=== PATIENT | female | born 1945 | race Caucasian/White ===

== ENCOUNTER 2018-03-29 06:57 | Day surgery (SDC) | payer MEDICARE ==
[~2018-03-29] VITALS: Ht 162.6 cm; Wt 63.0 kg
[2018-03-29] MEDS ORDERED: LACTATED RINGERS 1,000 ML IV SCH (07:29)
[2018-03-29 07:31] VITALS: BP 177/112
[2018-03-29] MEDS ORDERED: FENTANYL PF 100 MCG/2ML ONE ×2 (08:49→10:12)
[2018-03-29] MEDS ORDERED: MIDAZOLAM 1 MG/ML, 2ML ONE (08:50)
[2018-03-29] MEDS ORDERED: PROPOFOL 50 ML ONE (08:51)
[2018-03-29] MEDS ORDERED: OXYcodone 5 MG/5 ML ORAL.SOL UDC PO PRN (09:30)
[2018-03-29] MEDS ORDERED: HALOPERIDOL 5 MG/ML IV PRN (09:30)
[2018-03-29] MEDS ORDERED: hydrALAzine 20 MG/ML, 1ML IV PRN (09:30)
[2018-03-29] MEDS ORDERED: ONDANSETRON 2MG/ML, 2ML IV PRN (09:30)
[2018-03-29] MEDS ORDERED: FENTANYL PF 100 MCG/2ML IV PRN (09:30)
[2018-03-29] MEDS ORDERED: HYDROmorphone 2 MG/ML, 1ML IVPush PRN (09:30)
[2018-03-29] MEDS ORDERED: LABETALOL 5MG/ML, 20ML IV PRN (09:30)
[2018-03-29] MEDS ORDERED: MEPERIDINE/PF 25MG/0.5ML IVPush PRN (09:30)
[2018-03-29] MEDS ORDERED: OXYcodone 5 MG/5 ML ORAL.SOL UDC ONE (10:12)
== END 2018-03-29 11:20 | disposition home or self-care (01) ==
LOC: OUT 06:57
PROVIDERS: ATTEND Internal Medicine Gastroenterology
DX: K22.8 Other specified diseases of esophagus (principal); K22.2 Esophageal obstruction; Z85.3 Personal history of malignant neoplasm of breast; Z98.890 Other specified postprocedural states; Z87.891 Personal history of nicotine dependence
CPT/HCPCS: 43238; 88172; 88173; 88305; 93005; J2250; J2704; J7120; J3010

== ENCOUNTER 2019-10-03 09:40 | Day surgery (SDC) | payer MEDICARE ==
[~2019-10-03] VITALS: Ht 157.5 cm; Wt 64.0 kg
[~2019-10-03 09:40] MED LIST: NO MEDICATIONS
[2019-10-03] MEDS ORDERED: LACTATED RINGERS 1,000 ML IV SCH (10:02)
[2019-10-03 10:05] VITALS: BP 147/91
[2019-10-03] MEDS ORDERED: CHLORHEXIDINE 15 ML UDC MM ONE (10:30)
[2019-10-03] MEDS ORDERED: LIDOCAINE-MPF 1%, 2ML INFIL ONE (10:30)
[2019-10-03] MEDS ORDERED: MIDAZOLAM 1 MG/ML, 2ML IV PRN (12:30)
[2019-10-03] MEDS ORDERED: ONDANSETRON 2MG/ML, 2ML IVPush PRN (12:30)
[2019-10-03] MEDS ORDERED: FENTANYL PF 100 MCG/2ML IV PRN (12:30)
[2019-10-03] MEDS ORDERED: OXYcodone 5 MG/5 ML ORAL.SOL UDC PO PRN (12:30)
[2019-10-03] MEDS ORDERED: PROPOFOL 10 MG/ML, 50ML ONE (14:24)
== END 2019-10-03 16:00 | disposition home or self-care (01) ==
LOC: OUT 09:40
PROVIDERS: ATTEND Internal Medicine Gastroenterology
DX: K22.8 Other specified diseases of esophagus (principal); Z11.59 Encounter for screening for other viral diseases; K29.50 Unspecified chronic gastritis without bleeding; K21.9 Gastro-esophageal reflux disease without esophagitis; Z79.899 Other long term (current) drug therapy; Z85.01 Personal history of malignant neoplasm of esophagus
CPT/HCPCS: 43239; 43259; 88305; J2704; J7120; U0001